=== PATIENT | female | born 1980 | race Caucasian/White ===

== ENCOUNTER 2018-10-08 19:42 | Emergency (ER) | payer OTHER ==
[~2018-10-08] VITALS: Ht 157.5 cm; Wt 80.7 kg
[2018-10-08] MEDS ORDERED: SYNTHROID75 MCG PO (19:59)
[2018-10-08] MEDS ORDERED: PROPRANOLOL 4040 M1 PO (20:00)
[2018-10-08] MEDS ORDERED: NORCO 10-325 T1 EACH PO (21:44)
[2018-10-08] MEDS ORDERED: SSD CREAM 1% 5050 GM TOP (21:44)
[2018-10-08] MEDS ORDERED: KEFLEX500 M1 PO (21:44)
[2018-10-08 23:18] VITALS: BP 130/71
== END 2018-10-08 22:15 | disposition home or self-care (01) ==
LOC: ER 19:42
DX: T23.152A Burn of first degree of left palm, initial encounter (principal); T23.151A Burn of first degree of right palm, initial encounter; T31.0 Burns involving less than 10% of body surface; E03.9 Hypothyroidism, unspecified; Z88.1 Allergy status to other antibiotic agents; Z88.8 Allergy status to other drugs, medicaments and biological substances; X10.2XXA Contact with fats and cooking oils, initial encounter; Y92.89 Other specified places as the place of occurrence of the external cause; Y93.89 Activity, other specified; Y99.8 Other external cause status